=== PATIENT | female | born 1955 | race Caucasian/White ===

== ENCOUNTER 2020-01-13 10:41 | Emergency (ER) | payer OTHER, MEDICARE ==
[~2020-01-13] VITALS: Wt 78.5 kg
[2020-01-13 11:12] VITALS: TEMP 98.9
[2020-01-13] MEDS ORDERED: FLEXERIL 1010 MG/TAB PO (12:36)
[2020-01-13] MEDS ORDERED: MICARDIS80 MG PO (13:04)
[2020-01-13] MEDS ORDERED: VIVLODEX5 MG (13:07)
[2020-01-13 13:55] VITALS: BP 139/85; PULSE 86
== END 2020-01-13 13:55 | disposition home or self-care (01) ==
LOC: COL.ER 10:41
DX: M25.512 Pain in left shoulder (principal); I10 Essential (primary) hypertension